=== PATIENT | female | born 1975 | race Caucasian/White ===

== ENCOUNTER 2017-02-20 10:39 | Emergency (ER) | payer OTHER ==
[~2017-02-20] VITALS: Ht 177.8 cm; Wt 92.4 kg
[~2017-02-20 10:39] MED LIST: AMBIEN CR12.5 MG PO; AVINZA45 MG; CYMBALTA30 MG PO; METHADONE HCL40 MG PO; METHADOSE5 MG; MSIR PO; Motrin PO; NATALCARE RX1 TABLET PO; NEXIUM40 MG PO; OXYCODONE30 MG PO; OXYCONTIN20 MG PO; PRENATAL + DHA1 EACH PO; Phenergan PO; Protonix PO; TOPAMAX50 MG PO
[2017-02-20] MEDS ORDERED: LUNESTA3 MG PO (11:05)
[2017-02-20] MEDS ORDERED: OXYMORPHONE HCL30 MG PO (11:06)
[2017-02-20 11:51] VITALS: BP 124/89
[2017-02-20 12:20] LABS: HEMATOCRIT 47.2 % (36.0-46.0); MCH 27.9 PG (29.0-34.0); MCHC 32.8 G/DL (30.0-36.0); MCV 84.9 FL (83-99); MEAN PLAT.VOLUME 9.9 uM^3 (9.5-12.4); PLATELET COUNT 258 K/uL (156-360); RBC DIS.WIDTH-CV 14.2 % (11.8-14.6); RBC DIS.WIDTH-SD 43.9 % (39-53); RED BLOOD COUNT 5.56 M/uL (3.80-5.20); WHITE BLOOD COUNT 9.7 K/uL (4.1-10.2)
[2017-02-20 12:27] LABS: ADD MIUA? YES; BILIRUBIN NEGATIVE; BLOOD SMALL; COLOR COLORLESS ((YELLOW)); GLUCOSE (STRIP) NEGATIVE; KETONES NEGATIVE; LEUKOCYTES NEGATIVE; NITRITE NEGATIVE; PROTEIN (STRIP) NEGATIVE; SPECIFIC GRAVITY 1.002 (1.000-1.030); UROBILINOGEN 0.2 MG/DL (0.2-1.0)
[2017-02-20 12:30] LABS: D-DIMER ELISA 1.02 mg/L FEU (< 0.57)
[2017-02-20 12:32] LABS: BACTERIA RARE /HPF; CALCIUM OXALATE CRYSTALS 1+ /HPF; EPITHELIAL CELLS RARE /HPF; MUCUS NONE SEEN /LPF; RED BLOOD CELLS 0-5 /HPF (0-5); UCUL ADDED? NO; WHITE BLOOD CELLS 0-5 /HPF (0-5)
[2017-02-20 12:39] LABS: CHLORIDE 111 mEq/L (99-109); POTASSIUM 3.5 mEq/L (3.7-5.4); SODIUM 145 mEq/L (136-147)
[2017-02-20 12:41] LABS: GLUCOSE 106 mg/dL (70-99)
[2017-02-20 12:42] LABS: ANION GAP 13 MEQ/L (2-14)
[2017-02-20 12:43] LABS: TOTAL BILIRUBIN 0.3 mg/dL (0.0-1.0)
[2017-02-20 12:44] LABS: TROP-I INTERPRETATION NEGATIVE; TROPONIN-I < 0.01 ng/mL (0.0-0.30)
[2017-02-20 12:45] LABS: ALKALINE PHOSPHATASE 88 IU/L (3-129); GFR ESTIMATE (CALCULATED) > 59 mL/min/
[2017-02-20 12:46] LABS: UREA NITROGEN (BUN) 5 mg/dL (9-23)
== END 2017-02-20 13:50 | disposition left against medical advice (07) ==
LOC: EME 10:39
PROVIDERS: Physician Assistant
DX: R07.9 Chest pain, unspecified (principal); M79.602 Pain in left arm; M54.2 Cervicalgia; R11.0 Nausea; R06.02 Shortness of breath; K21.9 Gastro-esophageal reflux disease without esophagitis; F17.200 Nicotine dependence, unspecified, uncomplicated
CPT/HCPCS: 71020; 80053; 81003; 84484; 85027; 85379; 93005; 99281; 99284; J2270; J2765

== ENCOUNTER → 2017-07-27 | Outpatient (CLI) | payer OTHER ==
[~2017-07-27] MED LIST changes: +LUNESTA3 MG PO; +OXYMORPHONE HCL30 MG PO
== END | disposition home or self-care (01) ==
LOC: CDC 11:54
DX: R94.31 Abnormal electrocardiogram [ECG] [EKG] (principal)
CPT/HCPCS: 93000